=== PATIENT | female | born 1990 | race Caucasian/White ===

== ENCOUNTER 2016-07-27 15:38 | Emergency (ER) | payer BC, MEDICARE | END 2016-07-27 17:37 | disposition home or self-care (01) | LOC: ER 15:38 | DX: O21.9 Vomiting of pregnancy, unspecified (principal); O23.41 Unspecified infection of urinary tract in pregnancy, first trimester; Z3A.12 12 weeks gestation of pregnancy; O99.611 Diseases of the digestive system complicating pregnancy, first trimester; K51.90 Ulcerative colitis, unspecified, without complications; O99.331 Smoking (tobacco) complicating pregnancy, first trimester; F17.200 Nicotine dependence, unspecified, uncomplicated | CPT/HCPCS: 36415; 87502; 96361; 96374; 96375; J0696; J2550 ==